=== PATIENT | female | born 1980 | race Caucasian/White ===

== ENCOUNTER 2017-05-31 23:18 | Inpatient (IN) | payer OTHER ==
[2017-06-01] MEDS ORDERED: AMPICILLIN - 2 GM in SODIUM CHLORIDE 100 ML IVPB ONE (00:30)
[2017-06-01] MEDS ORDERED: TUBERCULIN PPD 5 TU/0.1ML SYRINGE (IN PATIENT USE ONLY) ID ONE (00:32)
[2017-06-01 00:46] LABS: BASOPHIL 0.9 % (0-2.0); EOSINOPHIL 0.9 % (0-4.5); MCH 31.6 pg (25.7-33.7); MCHC 33.9 g/dl (32.0-36.0); MEAN PLT VOLUME 8.5 fl (7.5-11.1); PLATELET COUNT 216 K/MM3 (134-434); RDW 14.1 % (11.6-15.6); WHITE BLOOD COUNT 10.7 K/mm3 (4.0-10.0)
[2017-06-01] MEDS ORDERED: BUTORPHANOL TARTRATE 1 MG/ML VIAL IVPB ONE (00:50)
[2017-06-01] MEDS ORDERED: PROMETHAZINE HCL 25 MG/1 ML VIAL IVPB ONE (00:50)
[2017-06-01 01:13] LABS: INR 0.96 (0.82-1.09); PROTHROMBIN TIME (PATIENT) 10.6 SEC (9.98-11.88)
[2017-06-01] MEDS ORDERED: DEXTROSE 5%-LACTATED RINGERS 1,000 ML IV SCH ×2 (01:15→04:15)
[2017-06-01 01:16] LABS: ACTIVATED PTT 27.8 SECONDS (26.9-34.4)
[2017-06-01 01:22] VITALS: BMI 32.8
[2017-06-01 01:23] LABS: ANION GAP 11 (8-16); CALCIUM 8.4 mg/dL (8.5-10.1); CO2 21 mmol/L (21-32); CREATININE 0.4 mg/dL (0.55-1.02); GLUCOSE,RANDOM 79 mg/dL (74-106)
[2017-06-01] MEDS ORDERED: BENZOCAINE 28 GM HEMORRHOIDAL OINTMENT TP PRN (04:02)
[2017-06-01] MEDS ORDERED: IBUPROFEN 600 MG TABLET (FP) PO PRN (04:02)
[2017-06-01] MEDS ORDERED: BISACODYL 10 MG SUPP.RECT RC PRN (04:02)
[2017-06-01] MEDS ORDERED: WITCH HAZEL 50% (TUCKS) 40 PAD/JAR PAD TP PRN (04:02)
[2017-06-01] MEDS ORDERED: BENZOCAINE 20% 57 GM BOTTLE TP PRN (04:02)
[2017-06-01] MEDS ORDERED: METHYLERGONOVINE MALEATE 0.2 MG/1 ML AMP IM PRN (04:02)
--- NOTE | 2017-06-01 04:06 | PN ---
Delivery - Delivery Vaginal Delivery: Spontaneous Type of Anesthesia: Local Episiotomy/Laceration: None EBL (cc): 500 Delivery, Single - Feeding Plan Initial Plan: Elected not to breastfeed exclusively throughout hospitalization Remarks - Remarks Remarks: Normal spontaneous vaginal delivery of a live girl over intact perineum Nose / Oropharynx suctioned @ perineum. Cord clamped and cut. Placenta expelled spontaneously intact. Mother in stable condition.
--- NOTE | 2017-06-01 04:12 | HP ---
Past Medical History - Admission Chief Complaint: Labor pain History of Present Illness: 37 yo @ 39 weeks, gestation, EDC 06/05/17, admitted for labor pain. She denies any ROM nor vaginal bleeding. History Source: Patient Limitations to Obtaining History: No Limitations - Past Medical History ...: 4 ...Para: 3 ...Term: 3 ...: 0 ...Spon : 0 ...Induced : 0 ...Multiple Gestation: 0 ...LMP: 08/26/16 ... Weeks Gestation by Dates: 39.5 ...EDC by Dates: 06/02/17 ...EDC by Sono: 06/05/17 - Past Surgical History Past Surgical History: Yes: None Hx Myomectomy: No Hx Transabdominal Cerclage: No - Smoking History Smoking history: Former smoker Have you smoked in the past 12 months: No - Alcohol/Substance Use Hx Alcohol Use: No History of Substance Use: reports: None - Social History Usual Living Arrangement: Yes: With Spouse History of Recent Travel: No Home Medications - Allergies Allergies/Adverse Reactions: Allergies Allergy/AdvReac Type Severity Reaction Status Date / Time No Known Allergies Allergy Verified 06/01/17 00:28 - Home Medications Home Medications: Ambulatory Orders Vit No.130/Iron/FA [ Vitamins] 1 each PO DAILY 06/01/17 Family Disease History - Family Disease History Family History: Unremarkable Review of Systems - Review of Systems Constitutional: reports: No Symptoms Eyes: reports: No Symptoms HENT: reports: No Symptoms Neck: reports: No Symptoms Cardiovascular: reports: No Symptoms Respiratory: reports: No Symptoms Gastrointestinal: reports: No Symptoms Genitourinary: reports: Pain Breasts: reports: No Symptoms Reported Musculoskeletal: reports: No Symptoms Integumentary: reports: No Symptoms Neurological: reports: No Symptoms Endocrine: reports: No Symptoms Hematology/Lymphatic: reports: No Symptoms Psychiatric: reports: Hallucinations Pain Intensity: 8 Physical Exam - Maternity Vital Signs: Vital Signs Temperature 98.3 F 06/01/17 02:00 Pulse Rate 80 06/01/17 02:00 Respiratory Rate 20 06/01/17 02:00 Blood Pressure 123/61 06/01/17 02:00 O2 Sat by Pulse Oximetry (%) Constitutional: Yes: Well Nourished Eyes: Yes: Conjunctiva Clear HENT: Yes: Atraumatic Neck: Yes: Supple Cardiovascular: Yes: Regular Rate and Rhythm Lungs: Clear to auscultation - Abdominal Exam/OB Number of Fetuses: Single Presentation: Vertex - Vaginal Exam/OB Dilatation (cm): 4 Effacement (%): 90 - Physical Exam Integumentary: Yes: WNL ...Motor Strength: WNL Psychiatric: Yes: Alert, Oriented - Labs Lab Results: CBC, BMP 06/01/17 00:20 06/01/17 00:20 Problem List - Problems (1) Pain during labor Code(s): O99.89 - OTH DISEASES AND CONDITIONS COMPL PREG/CHLDBRTH R52 - PAIN, UNSPECIFIED (2) Status post normal vaginal delivery Code(s): JZW4330 - Assessment/Plan Active labor Admit to L&D Anticipate
[2017-06-01] MEDS ORDERED: D5W-LR W/ 20 UNITS OXYTOCIN 1,000 ML IV SCH (04:15)
[2017-06-01] MEDS ORDERED: AMPICILLIN - 1 GM in SODIUM CHLORIDE 100 ML IVPB SCH (04:30)
[2017-06-01] MEDS: FERROUS SO4 325 MG TABLET (FP) PO SCH ×3 (09:01→16:58)
[2017-06-01] MEDS: PRENATAL VITAMINS W/ FOLIC ACID TABLET (FP) PO SCH (09:01)
--- NOTE | 2017-06-01 09:25 | RAPID ---
Physical Examination Vital Signs: Labs: CBC, BMP 06/01/17 00:20 06/01/17 00:20 Rapid Response - Rapid Response Assessment: Rapid Response called on 37 year old female post today with normal vaginal delivery. Patient was sitting in the bathroom with two nurses holding her. Patient was extremely dizzy and had a pre-syncopal episode. When I arrived patient was pale and at one point was unresponsive for a few seconds. When we lifted her up to transfer her to the wheelchair a 12x10 cm clot was seen in the toilet. Patient was then transferred to the bed and was responsive and speaking. VITALS: BP: 90/48 mmHg HR: 74 BPM Temp: 98.3 F 02: 99% on 4L Glucose: 383 (Was drawn from the arm receiving D5W fluids) PHYSICAL EXAM: -General: pale and ill looking -HEART: RRR, No M/R/G appreciated. Normal S1 and S2 -LUNGS: CTA B/L -ABDOMEN: Firm, mildly distended with no tenderness, rebound or guarding upon palpation -EXTREMITIES: Trace pitting edema bilaterally ASSESSMENT: -Vasovagal Syncope secondary to Hypovolemia from acute blood loss during delivery -Possible retained products of conception causing causing blood clots PLAN: -IV Fluids wide open -EKG -CBC -CMP -Blood cultures -U/A -Fall precautions -Patient's Electro Mechanic, Dr. Guillermo, was notified by my attending, Dr. Melgar, and is aware of the situation.
[2017-06-01 09:54] LABS: BASOPHIL 0.3 % (0-2.0); EOSINOPHIL 0.1 % (0-4.5); MCH 31.4 pg (25.7-33.7); MCHC 33.2 g/dl (32.0-36.0); MEAN CELL VOLUME 94.5 fl (80-96); MEAN PLT VOLUME 8.1 fl (7.5-11.1); NEUTROPHILS 87.3 % (42.8-82.8); PLATELET COUNT 152 K/MM3 (134-434); WHITE BLOOD COUNT 11.8 K/mm3 (4.0-10.0)
[2017-06-01] MEDS: SODIUM CHLORIDE 1,000 ML IV SCH ×2 (10:00→18:26)
--- NOTE | 2017-06-01 10:16 | PN ---
Progress Note (short form) - Note Progress Note: Patient seen and re-evaluate. She's lying in bed and is responsive. Vitals are stable. Hemoglobin 7 PE : Status post vaginal delivery Status post syncopal episode hemorrhage Repeat CBC this pm Continue IVF fluid Consider blood transfusion later. Problem List - Problems (1) Pain during labor Code(s): O99.89 - OTH DISEASES AND CONDITIONS COMPL PREG/CHLDBRTH R52 - PAIN, UNSPECIFIED (2) Status post normal vaginal delivery Code(s): PWA2462 -
[2017-06-01 10:27] LABS: ALBUMIN 1.6 g/dl (3.4-5.0); ANION GAP 12 (8-16); BILIRUBIN,TOTAL 0.2 mg/dL (0.2-1.0); CALCIUM 7.4 mg/dL (8.5-10.1); CO2 18 mmol/L (21-32); CREATININE 0.6 mg/dL (0.55-1.02); SGOT/AST 12 U/L (15-37); SGPT/ALT 11 U/L (12-78); TOT PROT 3.9 g/dl (6.4-8.2)
[2017-06-01 10:29] LABS: ALK PHOS 110 U/L (45-117)
[2017-06-01 10:58] LABS: GLUCOSE,RANDOM 315 mg/dL (74-106)
[2017-06-01 15:44] LABS: URINE APPEARANCE SLCLOUDY; URINE BILIRUBIN NEGATIVE (NEGATIVE); URINE BLOOD 3+ (NEGATIVE); URINE COLOR YELLOW; URINE GLUCOSE (UA) 3+ (NEGATIVE); URINE KETONE TRACE (NEGATIVE); URINE LEUK ESTERASE TRACE (NEGATIVE); URINE NITRITE NEGATIVE (NEGATIVE); URINE UROBILINOGEN NEGATIVE mg/dL (0.2-1.0)
[2017-06-01 16:02] LABS: URINE PROTEIN 1+ (NEGATIVE)
--- NOTE | 2017-06-01 16:39 | EKG ---
Test Reason : Blood Pressure : / mmHG Vent. Rate : 078 BPM Atrial Rate : 078 BPM P-R Int : 142 ms QRS Dur : 076 ms QT Int : 384 ms P-R-T Axes : 062 006 028 degrees QTc Int : 437 ms NORMAL SINUS RHYTHM NORMAL ECG NO PREVIOUS ECGS AVAILABLE Confirmed by CASSIDY BLANDON MD ([id number]) on 06/01/2017 4:39:04 PM Referred By: Ruperto HOPE Confirmed By:CASSIDY BLANDON MD
[2017-06-01 16:52] LABS: BASOPHIL 0.2 % (0-2.0); EOSINOPHIL 0.8 % (0-4.5); MCH 31.5 pg (25.7-33.7); MCHC 33.7 g/dl (32.0-36.0); MEAN CELL VOLUME 93.5 fl (80-96); MEAN PLT VOLUME 8.3 fl (7.5-11.1); NEUTROPHILS 74.6 % (42.8-82.8); PLATELET COUNT 182 K/MM3 (134-434); RDW 14.5 % (11.6-15.6); WHITE BLOOD COUNT 12.3 K/mm3 (4.0-10.0)
--- NOTE | 2017-06-01 20:09 | PN ---
Progress Note (short form) - Note Progress Note: Patient with post hemorrhage and episode of syncope earlier today. Hgb this a.m. 7.1, now is 7.4. Pt feeling much improved, no further syncopal episodes. Discussed Hgb drop with patient (from 13.4 pre delivery to 7.4 now) and possibility of needing blood transfusion. Pt declines transfusion at this time, will recheck CBC in a.m. If Hgb lower in a.m. will consider transfusion.
[2017-06-02] MEDS: ACETAMINOPHEN 325 MG TABLET (FP) PO PRN ×2 (07:57→21:12)
[2017-06-02] MEDS: FERROUS SO4 325 MG TABLET (FP) PO SCH ×3 (07:58→17:27)
--- NOTE | 2017-06-02 08:02 | PN ---
Post Progress Note - Subjective Subjective: Pt seen/evaluated this a.m. Feeling well. Pain controlled. OOB without any further syncopal episodes. Voiding, passing flatus. Tachycardia slowly improving. No CP/SOB/F/C/VILLALBA. Type of Delivery: Vital Signs: Vital Signs Temperature 98.2 F 06/02/17 02:00 Pulse Rate 93 H 06/02/17 02:00 Respiratory Rate 18 06/02/17 02:00 Blood Pressure 88/54 06/02/17 02:00 O2 Sat by Pulse Oximetry (%) 99 06/01/17 05:15 Uterus: Yes: Fundus below umbilicus Abdomen/GI: Yes: Abdomen soft, Passing flatus, Tolerating PO. No: Abdominal Distention, Tender Lochia: Yes: Rubra Lochia, amount: Small Extremities: Yes: Calves non-tender. No: Edema Activity: Ambulating - Labs Labs: CBC WBC 12.3 K/mm3 (4.0-10.0) H 06/01/17 16:00 RBC 2.34 M/mm3 (3.60-5.2) L 06/01/17 16:00 Hgb 7.4 GM/dL (10.7-15.3) L 06/01/17 16:00 Hct 21.9 % (32.4-45.2) L 06/01/17 16:00 MCV 93.5 fl (80-96) 06/01/17 16:00 MCH 31.5 pg (25.7-33.7) 06/01/17 16:00 MCHC 33.7 g/dl (32.0-36.0) 06/01/17 16:00 RDW 14.5 % (11.6-15.6) 06/01/17 16:00 Plt Count 182 K/MM3 (134-434) 06/01/17 16:00 MPV 8.3 fl (7.5-11.1) 06/01/17 16:00 Neutrophils % 74.6 % (42.8-82.8) 06/01/17 16:00 Lymphocytes % 15.8 % (8-40) D 06/01/17 16:00 Monocytes % 8.6 % (3.8-10.2) D 06/01/17 16:00 Eosinophils % 0.8 % (0-4.5) D 06/01/17 16:00 Basophils % 0.2 % (0-2.0) 06/01/17 16:00 Problem List - Problems (1) Status post normal vaginal delivery Code(s): CES0936 - (2) hemorrhage Code(s): O72.1 - OTHER IMMEDIATE HEMORRHAGE (3) Anemia Code(s): D64.9 - ANEMIA, UNSPECIFIED Assessment/Plan 37 y/o PPD #1 s/p normal , post hemorrhage - AFVSS - PPH with anemia - Hgb 7.4 last night (stable from 7.1 in a.m.) discussed possible need for blood transfusion 2/2 symptomatic anemia from PPH - pt declined last night, will await CBC this a.m. and re evalaute for need for blood transfusion today - regular diet, PO pain meds, encourage ambulation
[2017-06-02 08:58] LABS: BASOPHIL 0.6 % (0-2.0); EOSINOPHIL 1.8 % (0-4.5); MCHC 33.9 g/dl (32.0-36.0); MEAN CELL VOLUME 94.2 fl (80-96); MEAN PLT VOLUME 8.2 fl (7.5-11.1); NEUTROPHILS 65.8 % (42.8-82.8); PLATELET COUNT 176 K/MM3 (134-434); RDW 14.7 % (11.6-15.6); WHITE BLOOD COUNT 9.7 K/mm3 (4.0-10.0)
--- NOTE | 2017-06-02 09:51 | PN ---
Progress Note (short form) - Note Progress Note: Pt with Hgb 6.5 this a.m. Discussed significant anemia with patient. Pt with headaches and syncopal episode yesterday. Tachycardic yesterday. Recommend transfusion of packed RBCs. Pt hesitant at this time. Will order PRBC, if pt refuses transfusion, will recheck CBC in afternoon. Continue PO Iron Problem List - Problems (1) Status post normal vaginal delivery Code(s): ZRH7004 - (2) hemorrhage Code(s): O72.1 - OTHER IMMEDIATE HEMORRHAGE (3) Anemia Code(s): D64.9 - ANEMIA, UNSPECIFIED
[2017-06-02] MEDS: PRENATAL VITAMINS W/ FOLIC ACID TABLET (FP) PO SCH (10:57)
[2017-06-02 20:16] LABS: BASOPHIL 0.5 % (0-2.0); EOSINOPHIL 0.8 % (0-4.5); MCH 31.7 pg (25.7-33.7); MCHC 34.6 g/dl (32.0-36.0); MEAN CELL VOLUME 91.4 fl (80-96); MEAN PLT VOLUME 8.1 fl (7.5-11.1); NEUTROPHILS 79.6 % (42.8-82.8); PLATELET COUNT 180 K/MM3 (134-434); RDW 16.1 % (11.6-15.6); WHITE BLOOD COUNT 10.7 K/mm3 (4.0-10.0)
[2017-06-02] MEDS ORDERED: SENNOSIDES/DOCUSATE COMBO (SENNA PLUS) TABLET (UD) PO PRN (22:00)
[2017-06-02] MEDS: SODIUM CHLORIDE 1,000 ML IV SCH (22:49)
[2017-06-03] MEDS: ACETAMINOPHEN 325 MG TABLET (FP) PO PRN (04:24)
[2017-06-03] MEDS: FERROUS SO4 325 MG TABLET (FP) PO SCH ×2 (07:36→11:28)
[2017-06-03] MEDS: PRENATAL VITAMINS W/ FOLIC ACID TABLET (FP) PO SCH (09:10)
[2017-06-03 09:48] VITALS: BP 108/60; PULSE 108; TEMP 97.5
--- NOTE | 2017-06-03 11:58 | DS ---
Physical Exam-MECHANICAL ENGINEERING MANAGER Vital Signs: Vital Signs Temperature 97.5 F L 06/03/17 09:46 Pulse Rate 108 H 06/03/17 09:46 Respiratory Rate 20 06/03/17 09:46 Blood Pressure 108/60 06/03/17 09:46 O2 Sat by Pulse Oximetry (%) 99 06/01/17 05:15 Constitutional: Yes: Well Nourished, No Distress, Calm Labs: CBC, BMP 06/02/17 19:30 06/01/17 09:20 Delivery - Delivery Vaginal Delivery: Spontaneous Type of Anesthesia: None Episiotomy/Laceration: None EBL (cc): 500 Delivery, Single - Stages of Labor Date 1st Stage Initiatied: 05/31/17 Time 1st Stage Initiated: 18:00 Date 2nd Stage Initiated: 06/01/17 Time 2nd Stage Initiated: 03:20 Date of Delivery: 06/01/17 Time of Delivery: 03:30 Time Placenta Delivered: 03:40 - Condition of Water Plant Maintenance Mechanic/Forestry Pilot Present: No Infant Gender: Female Weight: 7 lb 7 oz Position: OA Total Hours ROM (Hrs/Mins): 10 minutes - 1 Minute Total Score: 9 5 Minutes Total Score: 9 - Feeding Plan Initial Plan: Elected not to breastfeed exclusively throughout hospitalization Discharge Summary Reason For Visit: ADMIT LABOR Current Active Problems Anemia (Acute) Pain during labor (Acute) hemorrhage (Acute) Status post normal vaginal delivery (Acute) Procedures: Principal: Normal Other Procedures: Blood Transfusion (1 unit) Hospital Course: 37 y/o admitted to [facility] in labor and underwent a normal on 06/01. Patient had post hemorrhage with a syncopal episode on 06/01/17. She had a Hgb Jason to 6.5. The patient received 1 unit PRBC and repeat Hgb was 8.0. Patient was asymptomatic after transfusion and stable on 06/03/17 at which point she was discharged home. Condition: Stable - Instructions Diet, Activity, Other Instructions: Physical activity Resume your normal everyday activity as tolerated no heavy lifting or exercise until seen by your doctor. You may walk unlimited amounts and climb stairs. You may resume driving the car when you feel safe and comfortable behind the wheel. No sexual activity as instructed for 6 weeks. You may shower, no soaking in tubs/baths/pools for 6 weeks. Diet There are no dietary restrictions. Eat healthy, high-fiber foods. Drink 6 to 8 glasses of liquid each day. This will assist in keeping your bowels regular. Pain management You may take Tylenol or Ibuprofen (for example, Motrin, Advil etc.) as needed for pain. PLEASE continue taking your Iron as prescribed. Call MD for any of the following: Severe pain not relieved by medication Fever of 101 or higher Excessive bleeding or drainage on dressing Inability to urinate Referrals: Hali Freitas DO [Staff Physician] - 1 Month Disposition: HOME - Home Medications Comprehensive Discharge Medication List: Ambulatory Orders Vit No.130/Iron/FA [ Vitamins] 1 each PO DAILY 06/01/17 Ferrous Sulfate [Feosol] 325 mg PO BID #60 tablet 06/03/17
== END 2017-06-03 14:00 | disposition home or self-care (01) | DRG 774 ==
LOC: JDEL 23:18 → JLDR 23:55 → J3W 06-01 05:47
PROVIDERS: ADMIT Obstetrics & Gynecology; ATTEND Obstetrics & Gynecology
PROC: 10E0XZZ Delivery of Products of Conception, External Approach (ICD-10-PCS; principal; 2017-06-01)
PROC: 30233N1 Transfusion of Nonautologous Red Blood Cells into Peripheral Vein, Percutaneous Approach (ICD-10-PCS; 2017-06-02)
DX: O99.02 Anemia complicating childbirth (principal); O72.1 Other immediate postpartum hemorrhage; D62 Acute posthemorrhagic anemia; Z3A.39 39 weeks gestation of pregnancy; O26.893 Other specified pregnancy related conditions, third trimester; R55 Syncope and collapse; E86.1 Hypovolemia; Z37.0 Single live birth
CPT/HCPCS: 36415; 36430; 59409; 71020-TC; 80048; 80053; 81003; 81015; 85025; 85610; 85730; 86593; 86850; 86900; 86901; 86922; 87040; 93005; 93010; P9038; P9058

== ENCOUNTER 2017-07-18 05:13 | Day surgery (SDC) | payer OTHER ==
[2017-07-12 17:04] VITALS: BMI 27.5
[2017-07-18] MEDS ORDERED: BUPIVACAINE HCL/PF 0.5% (5MG/ML) 10 ML VIAL ONE (09:56)
[2017-07-18] MEDS ORDERED: LIDOCAINE HCL/PF 2% SDV 5ML VIAL ONE (11:05)
[2017-07-18] MEDS ORDERED: PROPOFOL 20 ML ONE ×2 (11:05→11:18)
[2017-07-18] MEDS ORDERED: MIDAZOLAM HCL 2 MG/2 ML SINGLE DOSE VIAL ONE (11:06)
[2017-07-18] MEDS ORDERED: ROCURONIUM BROMIDE 50 MG/5 ML VIAL ONE (11:06)
[2017-07-18] MEDS ORDERED: IBUPROFEN 600 MG TABLET (FP) PO PRN (11:24)
[2017-07-18] MEDS ORDERED: IBUPROFEN 800 MG/8 ML IJ IVPB PRN (11:24)
--- NOTE | 2017-07-18 11:24 | HP ---
Satellite [facility] - Chief Complaint Chief Complaint: Voluntary Sterilization History Source: Patient - Past Medical History Allergies/Adverse Reactions: Allergies Allergy/AdvReac Type Severity Reaction Status Date / Time No Known Allergies Allergy Verified 06/01/17 00:28 ...LMP: 06/01/17 ...: No - Current Medications Current Medications: Home Medications Medication Instructions Recorded Vit No.130/Iron/FA 1 each PO DAILY 06/01/17 [ Vitamins] Ibuprofen [Motrin -] 600 mg PO QID PRN #28 tablet 06/03/17 Satellite Physical Exam - Physical Examination Vital Signs: Vital Signs Period Temp Pulse Resp BP Sys/Dillard Pulse Ox Last 24 Hr 98.9 F 60 20 101/60 99 General Appearance: Well Nourished, Well Developed ENT: Clear, No Discharge Lung: Clear to auscultation Heart: Regular rate & rhythm Breasts: Soft, Non-Tender Abdomen: Soft, No tenderness Extremities: No edema Neurological: Intact, Alert, Oriented Satellite Impression/Plan - Impression/Plan Impression: Voluntary Sterilization Operative Procedure: Laparsocopic salpingectomy Date to be Performed: 07/18/17
[2017-07-18] MEDS ORDERED: LACTATED RINGERS SOLUTION 1,000 ML IV SCH (11:30)
[2017-07-18] MEDS ORDERED: DEXAMETHASONE SOD PHOSPHATE 4 MG/1 ML VIAL ONE (11:46)
[2017-07-18] MEDS ORDERED: BUPIVACAINE HCL/PF 0.5% (5MG/ML) 10 ML VIAL IJ ONE ×2 (11:51→12:12)
[2017-07-18] MEDS ORDERED: GLYCOPYRROLATE 0.2 MG/1 ML VIAL ONE (11:52)
[2017-07-18] MEDS ORDERED: NEOSTIGMINE METHYLSULFATE 0.5 MG/ML - 10 ML MDV ONE (11:52)
[2017-07-18] MEDS ORDERED: KETOROLAC TROMETHAMINE 30 MG/1 ML VIAL ONE (12:16)
[2017-07-18] MEDS ORDERED: ONDANSETRON 4 MG/2 ML VIAL IVPUSH PRN (12:34)
[2017-07-18] MEDS ORDERED: oxyCODONE HCL 5 MG TABLET PO PRN (12:34)
[2017-07-18] MEDS ORDERED: HYDROmorphone HCL CARPU-JECT 1 MG/1 ML DISP.SYRIN IVPUSH PRN (12:34)
--- NOTE | 2017-07-18 12:43 | OP ---
Operative Note - Note: Operative Date: 07/18/17 Operation: laparoscopic bilateral salpingectomy, right ovarian cystectomy Surgeon: Ave Duke Automated Equipment Engineer Technician: Maria Antonia Laura Anesthesiologist/CULTURE ROOM WORKER: Tisha Glass Anesthesia: General Specimens Removed: bilateral fallopian tubes, right ovarian cyst Estimated Blood Loss (mls): 5 Drains, Volume Out (mls): 300 Fluid Volume Replaced (mls): 700 Operative Report Dictated: Yes
[2017-07-18] MEDS ORDERED: HYDROmorphone HCL CARPU-JECT 2 MG/1 ML DISP.SYRIN ONE (12:50)
[2017-07-18] MEDS ORDERED: ONDANSETRON 4 MG/2 ML VIAL ONE (13:34)
--- NOTE | 2017-07-18 13:38 | SURG ---
Surgery Mammography Technician Note Mammography Technician: Maria Antonia Laura PA-C Date of Service: 07/18/17 Diagnosis: voluntary sterilization Procedure: bilateral salpingectomy, right ovarian cystectomy I was present for the entirety of the operative procedure. For further detail, please refer to operative report. Visit type - Case Type Case Type: Scheduled Admission - Emergency Emergency Visit: No - New patient This patient is new to me today: Yes Date on this admission: 07/18/17 - Critical Care Critical Care patient: No
[2017-07-18 14:13] VITALS: TEMP 97.7
[2017-07-18 17:15] VITALS: BP 132/76; PULSE 64
--- NOTE | 2017-07-19 13:45 | PATH ---
Surgical Pathology Report Patient Name: SAUL CALDWELL [facility]. Rec. #: [id number] /Age/Gender: 1980 (Age: 37) / F Account: [id number] Location: [facility] SURGICAL Taken: 07/18/2017 Received: 07/18/2017 Reported: 07/19/2017 Physicians: Ave Duke M.D. Specimen(s) Received A: RIGHT PARAOVARIAN CYST B: RIGHT FALLOPIAN TUBE C: LEFT FALLOPIAN TUBE Clinical History Multiparity Final Diagnosis A. RIGHT PARAOVARIAN CYST, EXCISION: BENIGN SEROUS CYSTADENOMA. B. RIGHT FALLOPIAN TUBE, SALPINGECTOMY: FULL LUMINAL PORTION OF BENIGN FALLOPIAN TUBE, INCLUDING FIMBRIATED END. C. LEFT FALLOPIAN TUBE, SALPINGECTOMY: FULL LUMINAL PORTION OF BENIGN FALLOPIAN TUBE, INCLUDING FIMBRIATED END. Electronically Signed Amando Ashton M.D. Gross Description A. Received in formalin labeled "right paraovarian cyst," is a 2.3 x 1.0 x 0.7 cm claire, intact cystic structure. The outer surface displays focal attached possible fimbria. Sectioning reveals a cystic lumen. The specimen is serially sectioned and entirely submitted in one cassette. B. Received in formalin labeled "right fallopian tube," is a 4.5 cm in length fimbriated portion of fallopian tube. The outer surface is claire-pink and smooth. Sectioning reveals an unremarkable lumen. Manager Quantitative sections are submitted in 2 cassettes as follows: 1-fimbria; 2-cross sections of fallopian tube. C. Received in formalin labeled "left fallopian tube," is a 4.5 cm in length fimbriated fallopian tube. The outer surface is claire-pink and smooth. Sectioning reveals an unremarkable lumen. Manager Quantitative sections are submitted in 2 cassettes as follows: 1-fimbria; 2-cross sections of fallopian tubes. 07/18/201707/18/2017
--- NOTE | 2017-09-12 19:33 | OP ---
DATE OF OPERATION: 07/18/2017 PREOPERATIVE DIAGNOSES: 1. Voluntary sterilization. 2. Ovarian cyst. OPERATION: Laparoscopic bilateral salpingectomy and right ovarian cystectomy. SURGEON: Chan Penaloza MD RESEARCH ASST: SO Ochoa ANESTHESIA: General. ANESTHESIOLOGIST: Tisha Glass MD FINDINGS: A right ovarian cyst and bilateral fallopian tube removal. ESTIMATED BLOOD LOSS: 5 mL DESCRIPTION OF PROCEDURE: Patient was taken to the operating room, placed in dorsal lithotomy position, prepped and draped in the usual sterile fashion. A timeout was performed in accordance with hospital regulation. Savage catheter was inserted into the bladder. Attention was then drawn to the umbilicus where a 5-mm umbilical incision was made. Veress needle was inserted into the cavity. Approximately 3-4 L of CO2 was insufflated in the cavity. A 5-mm trocar was then inserted with laparoscope and camera. Visualization revealed a right ovarian cyst and normal tubes. Two lower abdominal incisions were made on the left and the right. Trocars were inserted under direct visualization. A grasper was then used to grasp the right ovary. The left ovary was noted to be normal. Right ovary had an ovarian cyst. The EndoShears were then attached with the cautery. Cautery of the cyst was done, and the cyst wall was removed from the ovary, submitted to Pathology. Hemostasis was achieved using cautery with the EndoShears. Attention was then drawn to the tubes where bilateral grasping of the tubes was done, and coagulation and cutting of the tubes using LigaSure was then done. Tubes bilaterally were removed and submitted to Pathology. Hemostasis was achieved. All instrument count was correct after all instruments were then removed. CO2 was removed from the abdomen. Incisions were then closed using 0 Biosyn suture in subcuticular fashion. Wound was washed and dressed. Patient tolerated the procedure well, was taken to recovery room in stable condition. Estimated blood loss was 5 mL. CHAN PENALOZA M.D. CYN/[id number]
== END 2017-07-18 16:45 | disposition home or self-care (01) ==
LOC: JASU-SURG 05:13
PROVIDERS: ATTEND Obstetrics & Gynecology
PROC: 0U574ZZ Destruction of Bilateral Fallopian Tubes, Percutaneous Endoscopic Approach (ICD-10-PCS; principal; 2017-07-18 09:30)
PROC: 0UB04ZZ Excision of Right Ovary, Percutaneous Endoscopic Approach (ICD-10-PCS; 2017-07-18 09:30)
DX: Z30.2 Encounter for sterilization (principal); N83.201 Unspecified ovarian cyst, right side
CPT/HCPCS: 36415; 84702; 88302-TC; 88305-TC; 94760